=== PATIENT | male | born 1965 | race Caucasian/White ===

== ENCOUNTER 2016-09-28 11:28 | Outpatient (CLI) | payer MEDICARE ==
[2016-09-28 12:33] LABS: ALT (SGPT) 105 U/L (8-55); AST (SGOT) 45 U/L (5-34); Albumin 4.5 g/dL (3.5-5.0); Alkaline Phosphatase 52 U/L (40-150); Bilirubin, Direct 0.3 mg/dL (0.1-0.3); Bilirubin, Total 0.8 mg/dL (0.2-1.2); Cardiac Risk 6.3 (Less than 4.5); Cholesterol 207 mg/dl (< 200 Desired); HDL Cholesterol 33 mg/dL (>60 Neg Risk); LDL Cholesterol, Calculated 140 mg/dL; Protein, Total 7.5 g/dL (6.0-8.3); Triglycerides 168 mg/dL (Less than 150)
== END 2016-09-28 11:29 | disposition home or self-care (01) ==
LOC: HPCALD 11:28
PROVIDERS: ATTEND Physician Assistant
DX: E78.5 Hyperlipidemia, unspecified (principal)
CPT/HCPCS: 36415; 80061; 80076

== ENCOUNTER 2017-09-01 08:12 | Outpatient (CLI) | payer MEDICARE ==
--- NOTE | 2017-09-01 20:46 | RAD ---
LEFT ANKLE THREE VIEWS 09/01/17 No acute fracture or joint space abnormality was seen. There is a little bony spurring on the tip of the medial malleolus. A small calcaneal spur was noted. A small dayna of calcium or bone is seen at t he attachment of the Achilles tendon on the calcaneus, also probably not acute. IMPRESSION: No acute findings. POS: HOME
--- NOTE | 2017-09-01 20:53 | RAD ---
LEFT FOOT THREE VIEWS 09/01/17 Degenerative changes are present in the first metatarsophalangeal joint with some bony spurring. Ther e probably has been old trauma here. No acute fracture is seen and there is no sign of bony destructi on. A small calcaneal spur is present. IMPRESSION: 1. 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 2. Small calcaneal spur. POS: HOME
== END 2017-09-01 08:13 | disposition home or self-care (01) ==
LOC: BURRAD 08:12
PROVIDERS: ATTEND Anesthesiology
DX: M25.572 Pain in left ankle and joints of left foot (principal); M18.12 Unilateral primary osteoarthritis of first carpometacarpal joint, left hand; M77.32 Calcaneal spur, left foot